=== PATIENT | female | born 1985 | race American Indian/Alaskan Native ===

== ENCOUNTER 2017-04-25 11:03 | Emergency (ER) | payer OTHER ==
[2017-04-25 11:19] VITALS: BP 117/72
[2017-04-25 12:06] LABS: Basophils % (Auto) 0.5 % (0.0-1.8); Eosinophils % (Auto) 0.3 % (0.0-4.3); Hematocrit 38.8 % (30.3-42.9); Hemoglobin 12.7 gm/dl (10.1-14.3); Lymphocytes # (Auto) 1.5 K/mm3 (1.2-5.4); Lymphocytes % (Auto) 20.4 % (13.4-35.0); Mean Corpuscular HGB Conc 33 % (30-34); Mean Corpuscular Hemoglobin 27 pg (28-32); Mean Corpuscular Volume 82 fl (79-97); Monocytes # (Auto) 0.6 K/mm3 (0.0-0.8); Monocytes % (Auto) 8.5 % (0.0-7.3); Platelet Count 197 K/mm3 (140-440); Red Blood Count 4.75 M/mm3 (3.65-5.03); Red Cell Distribution Width 14.8 % (13.2-15.2)
[2017-04-25 12:56] LABS: Bacteria,Urine 1+ /HPF (Negative); Bilirubin,Urine NEG (Negative); Blood,Urine MOD (Negative); Color,Urine Straw (Yellow); Mucus,Urine FEW /HPF; Nitrite,Urine NEG (Negative); Protein,Urine <15 mg/dL mg/dL (Negative); Urobilinogen,Urine < 2.0 mg/dL (<2.0)
--- NOTE | 2017-04-25 14:17 | Ultrasound Report ---
Ultrasound OB less than 14 weeks fetus Ultrasound OB transvaginal HISTORY: Vaginal bleeding during . COMPARISON: None. TECHNIQUE: Transabdominal and transvaginal ultrasound with color doppler interrogation. FINDINGS: Uterus: The uterus is anteverted and measures 9.0 x 3.6 x 4.9 cm. At least 3 uterine fibroids are identified. There is a large solid fibroid near the uterine fundus measuring up to 8.6 cm in diameter. There is an exophytic fibroid from the posterior wall measuring up to 4.7 cm. An intramural fibroid is identified in the right side of the uterine fundus measuring 4.2 cm. Endometrium: An intrauterine gestational sac containing a pole and yolk sac is identified. Heart rate measures 69 beats per minute. [place]-rump length measures 2.8 mm which correlates with a 5 week 6 day . Estimated due date is 12/18/17. No subchorionic hemorrhage is identified. Right ovary: 3.1 x 1.5 x 1.9 cm. No focal abnormality. Left ovary: 2.7 x 2.3 x 2.2 cm. No focal abnormality. No pelvic fluid or mass is identified. Normal color doppler interrogation. IMPRESSION: Viable, single intrauterine as outlined above. No acute abnormality is detected. Uterine fibroid disease.
== END 2017-04-25 22:00 | disposition left against medical advice (07) ==
LOC: ED 11:03
DX: O46.90 Antepartum hemorrhage, unspecified, unspecified trimester (principal); Z3A.00 Weeks of gestation of pregnancy not specified; Z53.21 Procedure and treatment not carried out due to patient leaving prior to being seen by health care provider
CPT/HCPCS: 36415; 76801; 76817; 81001; 84702; 85025; 86850; 86900; 86901